=== PATIENT | female | born 1955 | race Caucasian/White ===

== ENCOUNTER 2020-06-24 14:40 | Emergency (ER) | payer MEDICARE, OTHER, SELFPAY ==
[2020-06-24 15:04] VITALS: BP 153/84; PULSE 91; RESP 18; TEMP 36.6; O2SAT 100; BMI 34.9
--- NOTE | 2020-06-24 15:17 | XR_ITS ---
WS: [id number] Left shoulder, 3 views, 06/24/2020 Clinical Data: Fall/injury Comparison: None. Findings: There is an impacted fracture of the humeral shaft into the left humeral head. The humeral head still articulates with the glenoid. The AC joint is normal. The adjacent left clavicle, left scapula and l eft ribs are unremarkable. XR/XR shoulder LT min 2V* [id number] Impression: Impacted comminuted fracture of left humeral shaft into left humeral head.
--- NOTE | 2020-06-24 15:17 | XR_ITS ---
WS: [id number] Left arm and humerus, 2 views, 06/24/2020Clinical Data: Fall/injury Comparison: None. Findings: There is an impacted comminuted fracture of the humeral shaft into the left humeral head. The humeral head still articulates with the glenoid fossa. The AC joint is normal. The distal shaft of the humer us is normal. XR/[place] [address] Impression: Impacted fracture of the humeral shaft in the left humeral head.
--- NOTE | 2020-06-24 16:17 | W.ED.FALL ---
HPI - Fall General: Chief Complaint: Fall Stated Complaint: L SHOULDER PAIN S/P FALL Time Seen by Provider: 06/24/20 16:17 History of Present Illness: HPI Narrative: Patient is a 64-year-old female comes in the ED with left shoulder pain. Just prior to arrival patient was walking up a hill after fishing and fell. She says the left side forehead hit the ground and she caught herself partially with her left arm. She now has left arm pain and says she cannot move it because of the pain. Left shoulder pain is rated 9 out of 10. Patient has swelling and ecchymosis above her left eye. She denies any loss of consciousness, headache, numbness or weakness to face or extremities or vision changes. Patient says she took 400 mg of ibuprofen before coming to the ED. Associated symptoms-after fall: Denies abdominal pain, chest pain, headache(s), hematuria or neck pain Review of Systems Const: Denies: fever(s), chills or fatigue Eyes: Denies: change in vision or eye discomfort ENMT: Denies: throat pain, odynophagia, nasal discharge or nasal congestion Card: Denies: chest pain, palpitations, edema, swelling of feet/ankles, dyspnea on exertion or orthopnea Resp: Denies: dyspnea, productive cough or non-productive cough GI: Denies: abdominal pain, nausea, vomiting, diarrhea, constipation or hematochezia : Denies: flank pain, dysuria or hematuria Musc: Reports: extremity pain (left shoulder); Denies: neck pain, back pain or extremity swelling Skin/Breast: Reports: other (hematoma above left eye); Denies: rash or new lesions Neuro: Denies: headache(s), numbness in extremities or weakness in extremities Physical Exam Const: COMMON NORMALS: no acute distress, patient oriented x3, healthy appearing and alert GENERAL APPEARANCE: cooperative HENMT: COMMON NORMALS: normocephalic and Normal external nose present HEAD & SCALP: normocephalic and hematoma (Left eyebrow); no Gibbons's sign and no raccoon eyes NOSE: Normal external nose present MOUTH: Normal oral and palatal mucosa present THROAT: posterior oropharynx normal and uvula midline Eye: COMMON NORMALS: Equal, round and reactive pupils present, EOMs intact bilaterally and normal visual pompa by confrontation PERIORBITAL: periorbital findings abnormal positive left periorbital swelling (Left eyebrow region ecchymosis and swelling) and periorbital ecchymosis (Left eyebrow region ecchymosis and swelling.); no tenderness PUPIL: Yes Equal, round and reactive pupils present Neck/C-Spine: COMMON NORMALS: supple GENERAL: Yes normal visual inspection Resp: COMMON NORMALS: normal respiratory effort, No retractions, No use of accessory muscles and clear to auscultation bilaterally AUSCULTATION: clear to auscultation bilaterally Cardio: COMMON NORMALS: regular rate, regular rhythm, S1 normal heart sound present, S2 normal heart sound present, No gallops present (Cardio), No clicks present (Cardio), No murmurs present (Cardio) and Peripheral pulses 2+ throughout RATE: regular rate RHYTHM: regular rhythm HEART SOUNDS: S1 normal heart sound present and S2 normal heart sound present PERIPHERAL PULSES: Peripheral pulses 2+ throughout GI: COMMON NORMALS: Normal to inspection, nondistended, normoactive bowel sounds present, Soft to palpation, non-tender and no masses PALPATION: Yes Soft to palpation : COMMON NORMALS: Yes no CVA tenderness BLADDER/KIDNEY EXAM: Yes no CVA tenderness Back/Pelvis: COMMON NORMALS: no CVA tenderness Extremity: COMMON NORMALS: capillary refill normal LEFT UPPER EXTREMITY: Yes shoulder joint Left shoulder joint: Yes inspection (No visible deformity-), Yes palpation (Tenderness over humeral head of shoulder.), Yes ROM (Limited range of motion due to pain.) and Yes neurovascular exam (Intact, 2+ radial pulse and cap refill and sensation normal) Neuro: COMMON NORMALS: patient oriented x3, CN's II-XII intact bilaterally, moves all extremities, no focal motor deficits and no sensory deficits noted SENSORIUM/ORIENTATION: Yes alert SENSORY EXAM: Yes extremities (intact) MOTOR EXAM: 5/5 motor strength present throughout Skin: GENERAL SKIN EXAM: ecchymosis (Left eyebrow region.) Course Vital Signs: Vital signs: Vital Signs Temperature 97.8 F 06/24/20 15:04 Pulse Rate 87 06/24/20 16:58 Respiratory Rate 20 H 06/24/20 16:58 Blood Pressure 142/71 06/24/20 16:58 Pulse Oximetry 96 06/24/20 16:58 MDM - Fall MDM Narrative: Medical decision making narrative: Patient is a 64-year-old female comes to the ED with left shoulder pain. Patient had a fall just prior to arrival to cause injuries. Physical exam shows some tenderness to the left shoulder but she is neurovascularly intact. Neuro exam is normal but she has a hematoma above her left eye. CT of head showed no acute findings. X-ray of left shoulder shows impacted fracture of the humeral shaft in the left humeral head. Patient was put in a shoulder immobilizer and given a prescription for hydrocodone. Patient lives in town just for [place] and says she is going to contact an orthopedic around there for follow-up. I placed an order with case management for them to follow patient and make sure she set up with orthopedic. Return to ED precautions given. Patient understood and agreed with plan. Dr. Garrett sign prescription for hydrocodone Imaging Data^: Xray Ortho: Attestation: I personally reviewed and interpreted this imaging study as follows: Radiologist's impression: [address] [address] XRay Report Signed Patient: MELITON DE LEÓN Unit #: [id number] : 1955 Age/Sex: 64 / F ADM Date: 06/24/20 Loc: ER Room/Bed: Attending Dr: Ordering Provider/Ordering MD: Cadence Garrett DO Date of Service: 06/24/20 Procedure(s): XR shoulder LT min 2V* 03302 Accession Number(s): [id number] Report Number: [id number] WS: [id number] Left shoulder, 3 views, 06/24/2020 Clinical Data: Fall/injury Comparison: None. Findings: There is an impacted fracture of the humeral shaft into the left humeral head. The humeral head still articulates with the glenoid. The AC joint is normal. The adjacent left clavicle, left scapula and left ribs are unremarkable. XR/XR shoulder LT min 2V* [id number] Impression: Impacted comminuted fracture of left humeral shaft into left humeral head. Dictated By: Trena Nowak MD Signed By: Trena Nowak MD Signed Date/Time: 06/24/20 1558 DD/ [address] [place] [address] XRay Report Signed Patient: MELITON DE LEÓN Unit #: [id number] : 1955 Age/Sex: 64 / F ADM Date: 06/24/20 Loc: ER Room/Bed: Attending Dr: Ordering Provider/Ordering MD: Cadence Garrett DO Date of Service: 06/24/20 Procedure(s): [place] [address] Accession Number(s): [id number] Report Number: [id number] WS: [id number] Left arm and humerus, 2 views, 06/24/2020Clinical Data: Fall/injury Comparison: None. Findings: There is an impacted comminuted fracture of the humeral shaft into the left humeral head. The humeral head still articulates with the glenoid fossa. The AC joint is normal. The distal shaft of the humerus is normal. XR/[place] [address] Impression: Impacted fracture of the humeral shaft in the left humeral head. Dictated By: Trena Nowak MD Signed By: Trena Nowak MD Signed Date/Time: 06/24/201556 DD/ 54 CT Head: Attestation: I personally reviewed and interpreted this imaging study as follows: Radiologist's impression: [address] [place] [address] CT Scan Report Signed Patient: MELITON DE LEÓN Unit #: [id number] : 1955 Age/Sex: 64 / F ADM Date: 06/24/20 Loc: ER Room/Bed: Attending Dr: Ordering Provider/Ordering MD: Khoa Mcclelland Date of Service: 06/24/20 Procedure(s): CT head wo con* 15417 Accession Number(s): [id number] Report Number: [id number] PROCEDURE INFORMATION: Exam: CT Head Without Contrast Exam date and time: 06/24/2020 4:35 PM Age: 64 years old Clinical indication: Injury or trauma; Blunt trauma (contusions or hematomas); Patient HX: Fall from standing on a wet rock hematoma L forehead denies loc; Additional info: Fall with hematoma above left eye TECHNIQUE: Imaging protocol: Computed tomography of the head without contrast. Radiation optimization: All CT scans at this facility use at least one of these dose optimization techniques: automated exposure control; mA and/or kV adjustment per patient size (includes targeted exams where dose is matched to clinical indication); or iterative reconstruction. COMPARISON: No relevant prior studies available. RADIATION DOSE METRICS: Total DLP (mGy-cm): 876.51 FINDINGS: Brain: There is volume loss and periventricular low density compatible with chronic small vessel disease changes. There is no acute hemorrhage, edema or mass effect. Cerebral ventricles: No ventriculomegaly. Bones/joints: Unremarkable. No acute fracture. Paranasal sinuses: Visualized sinuses are unremarkable. No fluid levels. Mastoid air cells: Visualized mastoid air cells are well aerated. Soft tissues: There is a soft tissue hematoma superior to the left orbit. CT/CT head wo con* [id number] IMPRESSION: No acute intracranial abnormality. Radiation Dose CTDIVOL = (mGy): DLP = 876.51 (mGy-cm) Dictated By: Kerri Hooker Signed By: Kerri Hooker Signed Date/Time: 06/24/201704 DD/ 02 Discharge Plan Discharge Patient Disposition: Home Clinical Impression: Hematoma Humeral fracture Qualifiers: Encounter type: initial encounter Humerus Location: shaft Fracture type: closed Fracture morphology: comminuted Fracture alignment: nondisplaced Laterality: left Qualified Code(s): S42.355A - Nondisplaced comminuted fracture of shaft of humerus, left arm, initial encounter for closed fracture Condition: Stable Discharge Orders: Discharge Order (Routine); Ordered 06/24/20 Ordered By: Khoa Mcclelland Discharge Diet: Regular Discharge Activity: Limit activity as instructed Patient Instructions: Fractures - Humerus Activity Restrictions/Additional Instructions: Follow-up with medical provider as directed. Case management will be contacting you in the next couple days to make sure he gets set up with orthopedic doctor. Limit activity and use of left arm and keep in a shoulder immobilizer. Take medications as prescribed. Return to the ER or your medical provider if condition worsens. Please read and understand discharge instructions. If any questions, please ask. Coding Level of Care Code ED Regulator Pin Inserter for Filig Fwd Exam Comprehensive
--- NOTE | 2020-06-24 16:30 | CTR_ITS ---
PROCEDURE INFORMATION: Exam: CT Head Without Contrast Exam date and time: 06/24/2020 4:35 PM Age: 64 years old Clinical indication: Injury or trauma; Blunt trauma (contusions or hematomas); Patient HX: Fall from standing on a wet rock hematoma L forehead denies loc; Additional info: Fall with hematoma above left eye TECHNIQUE: Imaging protocol: Computed tomography of the head without contrast. Radiation optimization: All CT scans at this facility use at least one of these dose optimization techniques: automated exposure control; mA and/or kV adjustment per patient size (includes targeted exams where dose is matched to clinical indication); or iterative reconstruction. COMPARISON: No relevant prior studies available. RADIATION DOSE METRICS: Total DLP (mGy-cm): 876.51 FINDINGS: Brain: There is volume loss and periventricular low density compatible with chronic small vessel disease changes. There is no acute hemorrhage, edema or mass effect. Cerebral ventricles: No ventriculomegaly. Bones/joints: Unremarkable. No acute fracture. Paranasal sinuses: Visualized sinuses are unremarkable. No fluid levels. Mastoid air cells: Visualized mastoid air cells are well aerated. Soft tissues: There is a soft tissue hematoma superior to the left orbit. CT/CT head wo con* [id number] IMPRESSION: No acute intracranial abnormality. Radiation Dose CTDIVOL = (mGy): DLP = 876.51 (mGy-cm)
[2020-06-24] MEDS: HYDROcodone-acetaminophen 7.5-325 mg Tablet 1 TAB PO (16:57)
[2020-06-24 16:58] VITALS: BP 142/71; PULSE 87; RESP 20; O2SAT 96
[2020-06-24 18:01] VITALS: BP 141/71; PULSE 84; RESP 20; TEMP 37.2; O2SAT 96
--- NOTE | 2020-06-27 10:49 | DCPLANNER ---
Addendum entered by Ansley Smith 06/27/20 14:46: sous chef kitchen manager called patient to discuss with patient follow up appointment with ortho. sous chef kitchen manager called phone number [phone], case planner unable to speak with patient at this time, a voicemail was left for patient to return employment evaluator/case manager phone call. Original Note: sous chef kitchen manager had message to schedule a follow up appointment for patient with ortho. sous chef kitchen manager called the ortho clinic, spoke with Pat, gave clinic patients information. sous chef kitchen manager was told that patients information would be printed and reviewed. Clinic will call patient with appointment information.
--- NOTE | 2020-06-29 13:47 | DCPLANNER ---
Maribel from [facility] called welfare case worker, stating that when clinic called patient to schedule a follow up appointment, that patient stated that she lived in [place] and will follow up closer to where she lives.
== END 2020-06-24 18:04 | disposition home or self-care (01) ==
PROVIDERS: Emergency Provider Physician Assistant
DX: S42.355A Nondisplaced comminuted fracture of shaft of humerus, left arm, initial encounter for closed fracture (principal); S00.12XA Contusion of left eyelid and periocular area, initial encounter; W19.XXXA Unspecified fall, initial encounter
CPT/HCPCS: 12345; 29240; 70450; 73030; 73060; 99281; 99283